=== PATIENT | female | born 1980 | race Caucasian/White ===

== ENCOUNTER 2018-10-16 18:25 | Emergency (ER) | payer OTHER ==
[~2018-10-16] VITALS: Ht 160 cm; Wt 72.6 kg
[2018-10-16 19:55] LABS: URINE BILIRUBIN NEGATIVE (Negative); URINE BLOOD TRACE (Negative); URINE CLARITY CLEAR; URINE COLOR YELLOW; URINE GLUCOSE-RANDOM NEGATIVE (Negative); URINE KETONES 2+ (Negative); URINE LEUKOCYTES NEGATIVE (Negative); URINE NITRITE NEGATIVE (Negative); URINE PROTEIN NEGATIVE (Negative); URINE SPECIFIC GRAVITY >= 1.030 (1.005-1.030); URINE UROBILINOGEN 0.2 E.U./dl (0.2-1.0)
[2018-10-16] MEDS ORDERED: DOXYCYCLINE 10100 M1 PO (20:57)
[2018-10-16 21:21] VITALS: BP 168/88
== END 2018-10-16 21:22 | disposition home or self-care (01) ==
LOC: M.ERS 18:25
PROVIDERS: Physician Assistant
DX: A59.01 Trichomonal vulvovaginitis (principal); N76.0 Acute vaginitis; E86.0 Dehydration; F17.200 Nicotine dependence, unspecified, uncomplicated; I10 Essential (primary) hypertension